=== PATIENT | male | born 1985 | race Caucasian/White ===

== ENCOUNTER 2023-12-29 22:09 | Emergency (ER) | payer OTHER, SELFPAY ==
--- NOTE | 2023-12-29 22:16 | ED_ITS ---
HPI - General Adult General Chief complaint: Skin/Abscess/Foreign Body Stated complaint: red swelling growth on chin Time Seen by Provider: 12/29/23 22:12 Source: patient, RN notes reviewed and old records reviewed Mode of arrival: Ambulatory Limitations: no limitations History of Present Illness HPI narrative: 38-year-old male with complaint of redness swelling of the left chin. Patient states he had leave for 13 days was not shaving and got a very large hair that he pulled out. There sort of a whole leftover in the start develop redness swelling had a little bit of drainage today from the area that is scabbed. He states redness has increased. He noticed it starting yesterday on Sunday. Patient states is mildly painful 1/10 but can feel the tightness and pulling. Denies fevers or chills. No nausea or vomiting. No difficulty with swallowing, no swelling under the tongue, airway or neck. Denies any other GI or urinary symptoms. Patient states has not had issues like this in the past. Denies any drug allergies. No tobacco, occasional alcohol, no recreational drugs. Related Data Previous Rx's Medication Instructions Recorded clindamycin HCl 300 mg capsule 300 mg PO QID 7 days #28 caps 12/29/23 Allergies Allergy/AdvReac Type Severity Reaction Status Date / Time No Known Drug Allergies Allergy Verified 12/29/23 22:24 Review of Systems Review of Systems ROS Unobtainable: All systems reviewed & are unremarkable except as noted in HPI and below Patient History Social History Smoking Status: Never smoker Exam Narrative Exam Narrative: GEN: well nourished, well appearing male, alert and oriented x 3, patient appears to be in mild distress. HEENT: Atraumatic, pupils are equal round reactive to light, extraocular movements are intact, nares are clear, Throat is clear without any exudates, erythema, tonsillar enlargement or uvular deviation, just below the jaw on the left the patient has 2.5cm area that is circular, erythematous and raised, there is a scab centrally with small punctate areas of purulent drainage scattered throughout. It is indurated without any fluctuance. Only mildly tender to touch. HEART: Regular rate and rhythm without murmur, clicks, rubs. LUNGS:Lungs clear to auscultation, no wheezes, rales, crackles, chest moves symmetrically ABD:bowel sounds normal, soft, non-tender, no guarding, rebound, rigidity, no masses noted, no hepatosplenomegaly MSCL: Non-tender, no muscle atrophy, muscles strength 5/5 upper and lower extremities, full range of motion, normal gait NEURO:CN 2-12 intact, sensation normal Initial Vital Signs Initial Vital Signs: Vital Signs Temperature 98.8 F 12/29/23 22:24 Pulse Rate 88 12/29/23 22:24 Respiratory Rate 17 12/29/23 22:24 Blood Pressure 132/81 12/29/23 22:24 Pulse Oximetry 97 12/29/23 22:24 Oxygen Delivery Method Room Air 12/29/23 22:24 Course Orders Ordered: Discontinued Medications Clindamycin HCl (Clindamycin 150 Mg Capsule) 300 mg PO NOW ONE Stop: 12/29/23 22:39 Last Admin: 12/29/23 22:48 Dose: 300 mg Vital Signs Vital signs: Vital Signs - 8 hr 12/29/23 22:24 12/29/23 22:56 Temperature 98.8 F Pulse Rate 88 95 H Respiratory Rate 17 18 Blood Pressure 132/81 123/78 Pulse Oximetry 97 96 Oxygen Delivery Method Room Air Room Air Medical Decision Making Imaging Data bedside US: My Impression: bedside US shows a small area of fluid 0.3cm at maximum diameter 1cm below skin. Discharge Plan Departure Patient Disposition: Home Clinical Impression: Abscess or cellulitis of chin Instructions: DI for Skin Abscess Activity Restrictions/Additional Instructions: Follow up in the next 2-3 days if you are not having improvement. Prescription for antibiotics was sent to [facility] in [place]. You can take Tylenol and/or ibuprofen for pain. Make sure to use warm compresses or hot soaks to the affected area 3-4 times daily for at least 10 minutes. Please return for increasing redness, swelling, increasing drainage, fevers, swelling of your tongue, airway or neck, difficulty with swallowing, vomiting or other new or concerning changes. Prescriptions: New clindamycin HCl 300 mg capsule 300 mg PO QID 7 Days Qty: 28 0RF Referrals: ProviderSpenser [Primary Care Provider] - Stand Alone Forms: Patient Portal/API
[2023-12-29 22:24] VITALS: BP 132/81; PULSE 88; RESP 17; TEMP 37.1; O2SAT 97; BMI 32.1
[2023-12-29] MEDS: CLINDAMYCIN 150 MG CAPSULE 300 MG PO (22:48)
[2023-12-29 22:56] VITALS: BP 123/78; PULSE 95; RESP 18; O2SAT 96
== END 2023-12-29 22:57 | disposition home or self-care (01) ==
PROVIDERS: Emergency Provider Emergency Medicine
DX: L02.416 Cutaneous abscess of left lower limb (principal); L03.116 Cellulitis of left lower limb
CPT/HCPCS: 99283